=== PATIENT | male | born 1960 | race Caucasian/White ===

== ENCOUNTER 2022-04-20 10:46 | Outpatient (RCR) | payer BC, SELFPAY ==
[2022-04-20 12:03] LABS: Creatinine* 0.8 mg/dL (0.5-1.5); Est. Creatinine Clearance* 102.66; Estimated Glomerular Filt Rate 102 ml/min
== END 2022-10-17 23:59 | disposition home or self-care (01) ==
LOC: CCIC 10:46
PROVIDERS: Visit Provider Clinical Nurse Specialist
DX: C96.9 Malignant neoplasm of lymphoid, hematopoietic and related tissue, unspecified (principal)
CPT/HCPCS: 36415; 36591; 82565

== ENCOUNTER 2022-04-27 15:01 | Outpatient (CLI) | payer BC, SELFPAY ==
--- NOTE | 2022-04-27 15:15 | CRLHL7_ITS ---
For Patients: As a result of the Century Cures Act, medical imaging exams and procedure reports are released immediately into your electronic medical record. You may view this report before your referring provider. If you have questions, please contact your health care provider. Indication: Bilateral knee pain Technique: Bilateral knee AP, bilateral knees flexed 45 degrees 10 degrees caudal, lateral and sunrise, 8 views Comparison: None Findings: Right knee: There is a chronic incidental ossicle adjacent to the fibular head. Normal patellofemoral alignment. No joint effusion or fracture. Spurring at the distal quadriceps tendon insertion to the patella. Mild medial compartment narrowing. Incidental ossicle adjacent to the superolateral patella. Left knee: Incidental ossicle adjacent to the lateral patella and to the fibular head. Spurring at the quadriceps tendon attachment to the superior patella. No joint effusion or fracture. Mild medial compartment narrowing. Impression: : Mild medial compartment degenerative arthrosis bilaterally. Bilateral distal quadriceps tendinosis. Dictated by Og Cervantes MD @ 04/27/2022 4:05:22 PM (Electronically Signed)
== END 2022-04-27 15:02 | disposition home or self-care (01) ==
LOC: RAD 15:02
PROVIDERS: Visit Provider Internal Medicine
DX: M25.561 Pain in right knee (principal); M25.562 Pain in left knee; M17.0 Bilateral primary osteoarthritis of knee; M65.262 Calcific tendinitis, left lower leg; M65.261 Calcific tendinitis, right lower leg
CPT/HCPCS: 73564